=== PATIENT | female | born 1980 | race Caucasian/White ===

== ENCOUNTER 2017-11-26 20:41 | Emergency (ER) | payer BC ==
[2017-11-26 20:49] VITALS: BP 129/72; BMI 35.7
--- NOTE | 2017-11-26 23:11 | DR.GENAD ---
HPI - Complaint/Symptoms Chief Complaint:: chest pain, shoulder pain, arm pain - Nurses notes reviewed Nurses Notes Review: Yes - Source History Provided: Patient - Mode of Arrival Mode of Arrival: Ambulatory - Timing Onset of Chief Complaint: 11/26/17 Came on: Suddenly - Duration Duration: Constant Duration: Hours - Severity Severity: Moderate PMH - PMH Past Medical History: No Past Medical History Comment: only medication is control Past Surgical History: Yes Surgical History: Ortho Surgery Past Surgical History Comment: RT FEMOR, RT KNEE, and RT ANKLE - Family History History of Family Medical Conditions: No Family Medical History: Diabetes Mellitus, Cancer, Hypertension - Social History Does patient currently use any type of tobacco product: No Have you used tobacco products in the last 12 months: No Type of Tobacco Use: None Alcohol Use: None Do you use any recreational Drugs:: No Lives With: Alone Lives Where: Home - infectious screening In the last 2 months have you had wt loss of >10#?: NO Have you had fever, night sweats or hemotysis?: No Have you traveled outside the country in the last 6 months?: No Isolation: Standard ROS - Review of Systems Constitutional: No Symptoms Reported Eyes: No Symptoms Reported ENTM: No Symptoms Reported Respiratoy: No Symptoms Reported Cardiovascular: Chest Pain Gastrointestinal/Abdominal: No Symptoms Reported Genitourinary: No Symptoms Reported Neurological: No Symptoms Reported Musculoskeletal: No Symptoms Reported Integumentary: No Symptoms Reported Hematologic/Lymphatic: No Symptoms Reported Endocrine: No Symptoms Reported All Other Systems: Reviewed and Negative PE - Vital Signs Vitals: Temperature 98.4 F Pulse Rate 70 Respiratory Rate 18 Blood Pressure 129/72 O2 Sat by Pulse Oximetry 99 - General Limitations: No Limitations General Appearance: Alert - Head Head Exam: Normal Inspection - Eyes Eye exam: Normal Appearance - ENT ENT Exam: Normal External Ear Exam External Ear Exam: Normal External Inspection TM/Canal Exam: Bilateral Normal Nose Exam: Normal Nose Exam Mouth Exam: Normal Inspection Throat Exam: Normal Inspection - Neck Neck Exam: Normal Inspection - Chest Chest Inspection: Symmetric Chest Wall Rise - Respiratory Respiratory Exam: Normal Lung Sounds Bilat Respiratory Exam: Bilateral Clear to Auscultation - Cardiovascular Cardiovascular Exam: Regular Rate, Normal Rhythm, Normal Heart Sounds - Abdominal Exam Abdominal Exam: Normal Bowel Sounds - Extremities Extremities Exam: Normal Inspection - Back Back Exam: Normal Inspection - Neurologic Neurological Exam: Alert, Oriented X3 - Psychiatric Psychiatric Exam: Anxious - Skin Skin Exam: Normal Color MDM - Differential Diagnosis Differential Diagnosis: CHEST PAIN ROR - Labs Reviewed Result Diagrams: 11/26/17 23:15 11/26/17 23:15 Laboratory: WBC 12.7 X10^3/uL (3.6-10.0) H 11/26/17 23:15 RBC 4.20 X10^6/uL (3.5-5.4) 11/26/17 23:15 Hgb 12.3 g/dL (12.0-16.0) 11/26/17 23:15 Hct 36.7 % (36.0-47.0) 11/26/17 23:15 MCV 87.5 fL (80.0-100.0) 11/26/17 23:15 MCH 29.3 pg (27.0-34.0) 11/26/17 23:15 MCHC 33.5 g/dL (33.0-35.0) 11/26/17 23:15 RDW 13.9 % (11.6-16.5) 11/26/17 23:15 Plt Count 332 X10^3/uL (150.0-450.0) 11/26/17 23:15 MPV 8.5 fL (7.4-11.0) 11/26/17 23:15 Neut % 66.2 % (42.0-75.0) 11/26/17 23:15 Lymph % 23.8 % (21.0-51.0) 11/26/17 23:15 [place] % 6.9 % (0.0-13.0) 11/26/17 23:15 Eos % 2.1 % (0.9-2.9) 11/26/17 23:15 Baso % 1.0 % (0.2-1.0) 11/26/17 23:15 Neut # 8.4 x10^3/uL (2.2-4.8) H 11/26/17 23:15 Lymph # 3.0 X10^3/uL (1.3-2.9) H 11/26/17 23:15 [place] # 0.9 x10^3/uL (0.3-0.8) H 11/26/17 23:15 Eos # 0.3 x10^3/uL (0.0-0.2) H 11/26/17 23:15 Baso # 0.1 X10^3/uL (0.0-0.1) 11/26/17 23:15 Absolute Nucleated RBC 0.0 /100WBC 11/26/17 23:15 INR Target Range - 11/26/17 23:15 INR 0.95 (0.8-1.3) 11/26/17 23:15 PTT 28.2 SECONDS (22.9-36.5) 11/26/17 23:15 PTT Comment - 11/26/17 23:15 Sodium 139 mmol/L (136-145) 11/26/17 23:15 Corrected Sodium TNP 11/26/17 23:15 Potassium 3.9 mmol/L (3.5-5.1) 11/26/17 23:15 Chloride 105 mmol/L (98-107) 11/26/17 23:15 Carbon Dioxide 24.3 mmol/L (21-32) 11/26/17 23:15 BUN 15 mg/dL (7-18) 11/26/17 23:15 Creatinine 0.77 mg/dL (0.55-1.02) 11/26/17 23:15 Est GFR (MDRD) Af Amer > 60 (>60) 11/26/17 23:15 Est GFR (MDRD) Non-Af > 60 (>60) 11/26/17 23:15 Glucose 93 mg/dL (65-99) 11/26/17 23:15 Calcium 9.1 mg/dL (8.5-10.1) 11/26/17 23:15 Corrected Calcium TNP 11/26/17 23:15 Magnesium 2.0 mg/dL (1.7-2.9) 11/26/17 23:15 Total Bilirubin 0.20 mg/dL (0.2-1.0) 11/26/17 23:15 AST 17 Units/L (15-37) 11/26/17 23:15 ALT 22 Units/L (12-78) 11/26/17 23:15 Alkaline Phosphatase 47 Units/L (46-116) 11/26/17 23:15 Creatine Kinase 207 Units/L (26-192) H 11/26/17 23:15 CK-MB (CK-2) 1.7 ng/mL (0-4.0) 11/26/17 23:15 CK/CKMB % Calc 0.8 % (<4) 11/26/17 23:15 Troponin I < 0.02 ng/mL (0-1.5) 11/26/17 23:15 Total Protein 7.8 g/dL (6.4-8.2) 11/26/17 23:15 Albumin 3.5 g/dL (3.4-5.0) 11/26/17 23:15 Globulin 4.3 g/dL (2.5-4.5) 11/26/17 23:15 Albumin/Globulin Ratio 0.8 Ratio (1.1-2.1) L 11/26/17 23:15 - Discharge Plan Condition: Stable - Follow ups/Referrals Follow ups/Referrals: NFD,None [Primary Care Provider] - 3 days - Instructions Instructions: Chest Pain Observation Additional Instructions: RETURN TO ED IF WORSE.
--- NOTE | 2017-11-26 23:20 | RAD ---
Chest, two views Indication: Chest pain Comparison: None Findings: Heart size is normal. No focal consolidation, effusion or pneumothorax is identified. [place] us thorax is unremarkable. Impression: No acute cardiopulmonary abnormality. Reported By:
[2017-11-26 23:29] LABS: BASOPHILS # (AUTO) 0.1 X10^3/uL (0.0-0.1); EOSINOPHILS # (AUTO) 0.3 x10^3/uL (0.0-0.2); EOSINOPHILS % (AUTO) 2.1 % (0.9-2.9); HEMATOCRIT 36.7 % (36.0-47.0); HEMOGLOBIN 12.3 g/dL (12.0-16.0); LYMPHOCYTES % (AUTO) 23.8 % (21.0-51.0); MEAN CORPUSCULAR HEMOGLOBIN 29.3 pg (27.0-34.0); MEAN CORPUSCULAR HGB CONC 33.5 g/dL (33.0-35.0); MEAN CORPUSCULAR VOLUME 87.5 fL (80.0-100.0); MEAN PLATELET VOLUME 8.5 fL (7.4-11.0); MONOCYTES # (AUTO) 0.9 x10^3/uL (0.3-0.8); MONOCYTES % (AUTO) 6.9 % (0.0-13.0); NEUTROPHILS # (AUTO) 8.4 x10^3/uL (2.2-4.8); NEUTROPHILS % (AUTO) 66.2 % (42.0-75.0); PLATELET COUNT 332 X10^3/uL (150.0-450.0); RED CELL DISTRIBUTION WIDTH 13.9 % (11.6-16.5); WHITE BLOOD COUNT 12.7 X10^3/uL (3.6-10.0)
[2017-11-26 23:50] LABS: BLOOD UREA NITROGEN 15 mg/dL (7-18); CALCIUM 9.1 mg/dL (8.5-10.1); CARBON DIOXIDE 24.3 mmol/L (21-32); CHLORIDE 105 mmol/L (98-107); CREATININE 0.77 mg/dL (0.55-1.02); SODIUM 139 mmol/L (136-145); TROPONIN I < 0.02 ng/mL (0-1.5); eGFR BLACK RACES > 60 (>60); eGFR NON BLACK RACES > 60 (>60)
[2017-11-26 23:54] LABS: ALANINE AMINOTRANSFERASE 22 Units/L (12-78); ALBUMIN 3.5 g/dL (3.4-5.0); ALKALINE PHOSPHATASE 47 Units/L (46-116); ASPARTATE AMINO TRANSFERASE 17 Units/L (15-37); CKMB % 0.8 % (<4); CREATINE KINASE 207 Units/L (26-192); CREATINE KINASE MB 1.7 ng/mL (0-4.0); TOTAL PROTEIN 7.8 g/dL (6.4-8.2)
== END 2017-11-27 00:43 | disposition home or self-care (01) ==
LOC: ER 20:41
DX: R07.89 Other chest pain (principal); M25.511 Pain in right shoulder; M79.601 Pain in right arm
CPT/HCPCS: 36415; 71046; 80053; 82550; 82553; 83735; 84484; 85025; 85610; 85730; 93005; 93010; 99283